=== PATIENT | male | born 1950 | race Two or more races ===

== ENCOUNTER 2016-11-20 19:46 | Inpatient (IN) | payer MEDICARE, MEDICAID ==
[~2016-11-20] VITALS: Ht 177.8 cm; Wt 67.1 kg
--- NOTE | 2016-11-20 19:50 | NUR ---
To bed 5 a 66 yo male bibra with c/o leaking gtube and per ems PMD wants to have gt replaced. Upon arrival to er, patient is obtunded, opens eyes, nonverbal, with shiley 6 trach to [facility] vent ramon well to current settings as AC rate 16 TV 450 FIo2 50% and peep 5. Patent airway maintained. Patient noted to have a temp taken per orem at 101.2F, skin moist. manager floral in placed. Kept hob elevated. Initiated comfort measures. Awaiting for er md ocampo.
[2016-11-20 20:01] VITALS: BP 108/52
[2016-11-20] MEDS ORDERED: DIATR MEGLU/DIATRIZOATE SODIUM 120 ML BOTTLE (GASTROGRAPHIN) ONE (20:06)
[2016-11-20] MEDS ORDERED: ACETAMINOPHEN 650 MG/SUPP.RECT RC ONE ×2 (20:11→20:30)
--- NOTE | 2016-11-20 20:13 | NUR ---
started a saline lock on the right wrist g18, blood drawn and sent to lab.
[2016-11-20 20:17] LABS: BASOPHILS # (AUTO) 0.4 /CMM (0.0-0.2); BASOPHILS % (AUTO) 2.8 % (0.0-2.0); EOSINOPHILS # (AUTO) 0.1 /CMM (0.0-0.7); EOSINOPHILS % (AUTO) 0.7 % (0.0-6.0); HEMATOCRIT 33 % (39-51); HEMOGLOBIN 10.8 g/dL (13.5-17.5); LYMPHOCYTES # (AUTO) 2.6 /CMM (0.8-4.8); MEAN CORPUSCULAR HEMOGLOBIN 34 PG (26.0-33.0); MEAN CORPUSCULAR HGB CONC 33 g/dl (31.0-36.0); MEAN CORPUSCULAR VOLUME 103 fL (80-96); MONOCYTES # (AUTO) 1.1 /CMM (0.1-1.30); MONOCYTES % (AUTO) 7.8 % (2.0-12.0); NEUTROPHILS # (AUTO) 10.5 /CMM (1.8-8.9); NEUTROPHILS % (AUTO) 70.7 % (43.0-81.0); PLATELET COUNT (AUTO) 260 /CMM (150-450); RDW COEFFICIENT OF VARIATION 13.3 (11.5-15.0); RED BLOOD CELL COUNT(AUTO) 3.18 MIL/uL (4.5-6.0); WHITE BLOOD COUNT (AUTO) 14.7 K/uL (4.3-11.0)
--- NOTE | 2016-11-20 20:20 | NUR ---
xr tech at bedside.
[2016-11-20] MEDS ORDERED: IV NS 0.9% 2,000 ML ONE (20:22)
[2016-11-20] MEDS ORDERED: IV SET PRIMARY 1 EA INFUS.SET MC ONE (20:22)
[2016-11-20 20:30] LABS: CALCIUM, SERUM 8.5 mg/dL (8.5-10.1); POTASSIUM 4.1 mmol/L (3.5-5.1)
[2016-11-20] MEDS ORDERED: IV NS 0.9% 1,000 ML BAG IV ONE (20:30)
[2016-11-20 20:31] LABS: INR 1.04 (0.87-1.13); PROTHROMBIN TIME 10.8 SECS (9.5-12.7)
[2016-11-20 20:34] LABS: ALBUMIN 2.1 g/dL (3.4-5.0); BILIRUBIN,DIRECT 0.1 mg/dL (0.0-0.2); BILIRUBIN,TOTAL 0.3 mg/dL (0.2-1.0); TOTAL PROTEIN, SERUM 6.9 g/dL (6.4-8.2)
--- NOTE | 2016-11-20 20:40 | NUR ---
PT RECEIVED FROM TRANSPORT ON VENT VIA TRACH IN ER ON CHARTED SETTINGS AMBU BAG AT BEDSIDE ALARMS SET AND AUDIBLE BREATH SOUNDS COURSE EQUAL BILATERAL SUCTIONED A SMALL AMOUNT OF THICK ZHU SECRETIONS PT RECEIVING NO BREATHING TX AT THIS TIME Addendum: 11/20/16 at 2043 by TARUN SAMUEL RT Amended: Links added.
[2016-11-20 20:41] LABS: LACTIC ACID 0.7 mmol/L (0.4-2.0)
[2016-11-20 20:42] LABS: TROPONIN I 0.056 ng/mL (0.00-0.056)
--- NOTE | 2016-11-20 20:55 | NUR ---
CALLED NURSING SUP. FOR TELE BED
[2016-11-20] MEDS ORDERED: PIPERACILLIN /TAZOBACTAM 3.375 G in IV D5W 50 ML IV ONE (21:00)
[2016-11-20] MEDS ORDERED: VANCOMYCIN 1 GM in IV D5W 250 ML IV ONE (21:00)
[2016-11-20 21:05] LABS: APPEARANCE,URINE Clear (CLEAR); BILIRUBIN,URINE Negative (NEGATIVE); BLOOD, URINE Large Ery/uL (NEGATIVE); COLOR,URINE Yellow (YELLOW); KETONES,URINE Negative (NEGATIVE); LEUKOCYTE ESTERASE ,URINE Negative (NEGATIVE); NITRITE, URINE Negative (NEGATIVE); PROTEIN,URINE 30 mg/dl (NEGATIVE); UGLUCOSE Negative (NEGATIVE); UROBILINOGEN,URINE 0.2 EU/dL (0.2)
[2016-11-20] MEDS ORDERED: PIPERACILLIN /TAZOBACTAM 3.375 G VIAL IV ONE (21:07)
[2016-11-20] MEDS ORDERED: IV SET PRIMARY PUMP SET 1 EA INFUS.SET MC ONE (21:07)
[2016-11-20] MEDS ORDERED: VANCOMYCIN 1 GM VIAL ONE (21:08)
--- NOTE | 2016-11-20 21:09 | NUR ---
CALLED 'S GROUP, HOME DECORATOR, PAGED TO CALL BACK
[2016-11-20] MEDS ORDERED: ACET500C43 PO (21:21)
[2016-11-20 21:38] LABS: ADD URINE CULTURE NO; BACTERIA,URINE Few /HPF (None Seen); RBC,URINE 21-50 /HPF (0-2); SQUAMOUS EPITHELIAL CELL,UR Few /HPF (None Seen); WBC,URINE 0-2 /HPF (0-3)
[2016-11-20] MEDS ORDERED: DIGO125T GT (21:38)
[2016-11-20] MEDS ORDERED: PANT40SU2 GT (21:38)
[2016-11-20] MEDS ORDERED: FAMO20TA80 GT (21:38)
[2016-11-20] MEDS ORDERED: LIDO30AD10 TP (21:38)
[2016-11-20] MEDS ORDERED: LEVE100S GT (21:38)
[2016-11-20] MEDS ORDERED: PROP20TA7 PO (21:38)
[2016-11-20] MEDS ORDERED: INSU100V11 SQ ×2 (21:38)
[2016-11-20] MEDS ORDERED: FINA5TAB4 GT (21:38)
[2016-11-20] MEDS ORDERED: LORA10TA7 PO (21:38)
--- NOTE | 2016-11-20 21:42 | NUR ---
Report given to Jakub SOUZA for nkechi.
--- NOTE | 2016-11-20 21:58 | NUR ---
RN NOTES RECEIVED REPORT FROM ER. SATISH
--- NOTE | 2016-11-20 22:07 | NUR ---
Transported to the [facility] bed 114-2 via [facility] protocol, no incident noted.
--- NOTE | 2016-11-20 22:15 | NUR ---
UNDERCOAT SPRAYER INITIAL NOTES RECEIVED PT IN A GURNEY, PT IS OBTUNDED, TRACH INTACT SHILEY#6, AC16, TV450, FIO2 40%, PEEP5. NO RESPIRATORY DISTRESS NOTED. BODY ASSESSMENT DONE, PICTURES TAKEN, GT SITE LEAKAGE NOTED, ODORLESS, YELLOWISH, NO RESIDUAL NOTED. SR ON TELE MONITOR. IV SITES ON RIGHT WRIST FLUSHED AND PATENT. RUST IS PATENT, YELLOW AND CLEAR URINE DRAINING. BED LOCKED AND IN LOWEST POSITION. Addendum: 11/21/16 at 0645 by APARNA OREILLY RN PT IS AWAKE, RESPONDS TO YES OR NO QUESTIONS RESPONDS TO LIGHT TOUCH INTERMITTENTLY.
--- NOTE | 2016-11-20 22:54 | NUR ---
ACCOUNTS RECEIVABLE CLERK NOTES RECEIVED ORDERS FROM DR GUILLEN.
[2016-11-20] MEDS ORDERED: ENOXAPARIN SODIUM 40 MG/0.4 ML DISP.SYRIN SQ ONE (23:12)
--- NOTE | 2016-11-20 23:27 | NUR ---
SALES OPERATIONS CONSULTANT NOTES INFORMED DR. GUILLEN REGARDING PATIENT ABDOMEN XRAY RESULT. WITH ORDERS TO HOLD GTF AT THIS TIME UNTIL SEEN BY GI MD. NOTED AND CARRIED OUT.
[2016-11-20] MEDS ORDERED: ENOXAPARIN SODIUM 40 MG/0.4 ML DISP.SYRIN SQ SCH (23:30)
[2016-11-20] MEDS: BLOOD SUGAR DIAGNOSTIC 1 EACH STRIP IN SCH (23:53)
[2016-11-21] VITALS: BP_SYST 110; BP_SYST 96; BP_DIAS 54; BP_DIAS 61
[2016-11-21] MEDS ORDERED: DEXTROSE 50%-WATER 50 ML DISP.SYRIN IV PRN
[2016-11-21] MEDS ORDERED: INSULIN REGULAR, HUMAN 100 UNIT/ML 3 ML VIAL SQ PRN
--- NOTE | 2016-11-21 00:12 | NUR ---
FRESH FOOD MANAGER NOTES SPOKE WITH DR. JORDAN REGARDING PATIENT NPO STATUS, WITH ORDERS FOR IVF 1/2NS AT 75ML/HR. NOTED AND CARRIED OUT.
[2016-11-21] MEDS ORDERED: IV 1/2NS 1000 ML 1,000 ML IV ONE (00:19)
[2016-11-21] MEDS ORDERED: IV 1/2NS 1000 ML 1,000 ML IV PRN (00:30)
[2016-11-21] MEDS ORDERED: ALBUTEROL FS 2.5 MG/3 ML VIAL.NEB ONE (00:30)
[2016-11-21] MEDS ORDERED: IPRATROPIUM NEB FS 0.5 MG/2.5 ML AMPUL.NEB ONE (00:30)
[2016-11-21] MEDS: IPRATROPIUM NEB FS 0.5 MG/2.5 ML AMPUL.NEB NEB SCH ×4 (00:56→19:49)
[2016-11-21] MEDS: ALBUTEROL FS 2.5 MG/3 ML VIAL.NEB NEB SCH ×4 (00:56→19:48)
[2016-11-21 04:00] VITALS: BP 99/60
[2016-11-21] MEDS ORDERED: PIPERACILLIN /TAZOBACTAM 3.375 G in IV D5W 50 ML IV SCH (05:00)
[2016-11-21] MEDS ORDERED: IV D5W 50 ML IV ONE (05:10)
[2016-11-21] MEDS ORDERED: SECONDARY IV SET 1 EA INFUS.SET MC ONE ×2 (05:10→09:34)
[2016-11-21] MEDS ORDERED: PIPERACILLIN /TAZOBACTAM 3.375 G VIAL IV ONE (05:10)
[2016-11-21] MEDS: BLOOD SUGAR DIAGNOSTIC 1 EACH STRIP IN SCH ×4 (06:34→21:17)
--- NOTE | 2016-11-21 06:45 | NUR ---
SCRIPT EDITOR CLOSING NOTES NO SIGNIFICANT CHANGES OVERNIGHT, CURRENT VENT SETTING TOLERATING IT WELL, TRACH CLEAN AND INTACT, NO RESPIRATORY DISTRESS NOTED. KEPT CLEAN AND DRY, TURNED AND REPOSITIONED. ALL MEDS GIVEN, HOB ELEVATED, BED LOCKED, IN LOWEST POSITION. WILL ENDORSE TO AM NURSE FOR CONTINUATION OF CARE.
[2016-11-21] MEDS ORDERED: ACET-868 GT (07:30)
[2016-11-21] MEDS ORDERED: HYDR-3976 GT (07:31)
[2016-11-21 07:56] LABS: CALCIUM, SERUM 8.2 mg/dL (8.5-10.1); CREATININE 0.8 mg/dL (0.6-1.3); MAGNESIUM 2.6 mg/dL (1.8-2.4); PHOSPHORUS 4.3 mg/dL (2.5-4.9); POTASSIUM 3.6 mmol/L (3.5-5.1)
[2016-11-21 08:00] VITALS: BP 96/57
[2016-11-21 08:10] LABS: BASOPHILS % (AUTO) 0.3 % (0.0-2.0); EOSINOPHILS # (AUTO) 0.1 /CMM (0.0-0.7); EOSINOPHILS % (AUTO) 1.1 % (0.0-6.0); HEMATOCRIT 30 % (39-51); HEMOGLOBIN 9.5 g/dL (13.5-17.5); LYMPHOCYTES # (AUTO) 1.6 /CMM (0.8-4.8); LYMPHOCYTES % (AUTO) 13.2 % (20.0-44.0); MEAN CORPUSCULAR HEMOGLOBIN 33 PG (26.0-33.0); MEAN CORPUSCULAR HGB CONC 32 g/dl (31.0-36.0); MEAN CORPUSCULAR VOLUME 103 fL (80-96); MONOCYTES # (AUTO) 0.9 /CMM (0.1-1.30); MONOCYTES % (AUTO) 7.2 % (2.0-12.0); NEUTROPHILS # (AUTO) 9.6 /CMM (1.8-8.9); NEUTROPHILS % (AUTO) 78.2 % (43.0-81.0); PLATELET COUNT (AUTO) 219 /CMM (150-450); RDW COEFFICIENT OF VARIATION 14.3 (11.5-15.0); WHITE BLOOD COUNT (AUTO) 12.3 K/uL (4.3-11.0)
[2016-11-21] MEDS ORDERED: ENOXAPARIN SODIUM 40 MG/0.4 ML DISP.SYRIN SQ SCH (08:14)
[2016-11-21] MEDS ORDERED: FEE PK DOSING 1 MIN EA MC ONE (08:24)
[2016-11-21] MEDS: FINASTERIDE (5 MG) 5 MG TABLET PO SCH (09:30)
[2016-11-21] MEDS: LORATADINE 10 MG TABLET PO SCH (09:30)
[2016-11-21] MEDS: VANCOMYCIN 0.75 GM in IV D5W 250 ML IV SCH ×3 (09:32→23:57)
--- NOTE | 2016-11-21 09:33 | NUR ---
NOT ABLE TO GIVE AM MEDS DUE TO GT MALFUNCTION
--- NOTE | 2016-11-21 11:07 | NUR ---
WOUND CARE CONSULT: PT PRESENTS WITH RT EAR DEEP TISSUE INJURY IN EVOLUTION, PRESENT ON ADMISSION. PT NOTED TO HAVE REDNESS AROUND G TUBE SITE WITH GREENISH DRAINAGE. G TUBE IS CLAMPED. AWAITING GI CONSULT. PT ON MILTON ISOFLEX LOW AIRLOSS BED. IT IS VERY DIFFICULT TO OFFLOAD RT EAR DUE TO PT'S HEAD TURNED IN FIXED POSITION TO RT SIDE. ALL SKIN PROTECTION MEASURES IN PLACE AND DISCUSSED WITH NURSING STAFF. MD IN AGREEMENT WITH PLAN OF CARE. Addendum: 11/21/16 at 1109 by ANIAT DEAN WNDNU Amended: Links added.
[2016-11-21] MEDS ORDERED: Z GUARD REMEDY 2 OZ OINT TP PRN (11:30)
[2016-11-21] MEDS ORDERED: ACET-73 GT (11:34)
[2016-11-21] MEDS ORDERED: MULT240L7 GT (11:34)
[2016-11-21] MEDS ORDERED: SIME80TA15 GT (11:34)
[2016-11-21] MEDS ORDERED: CRAN3875 GT (11:34)
[2016-11-21] MEDS ORDERED: MAGN400O6 GT (11:34)
[2016-11-21] MEDS ORDERED: ASCO500T9 (11:34)
[2016-11-21] MEDS ORDERED: DOCU50LI GT (11:34)
[2016-11-21] MEDS ORDERED: AMIN887L GT (11:34)
[2016-11-21] MEDS ORDERED: NA P133E RC (11:34)
[2016-11-21] MEDS ORDERED: ONDA4TAB11 GT (11:34)
[2016-11-21] MEDS ORDERED: BISA10SU61 RC (11:34)
[2016-11-21] MEDS ORDERED: ACET325T53 GT ×3 (11:34)
[2016-11-21] MEDS ORDERED: ZINC220C6 GT (11:34)
[2016-11-21] MEDS ORDERED: IPRA3AMP IH (11:45)
[2016-11-21 12:00] VITALS: BP 104/61
[2016-11-21] MEDS: PROPRANOLOL HCL 10 MG TABLET PO SCH ×2 (12:25→20:54)
[2016-11-21] MEDS ORDERED: ACETAMINOPHEN 650 MG/SUPP.RECT RC PRN (12:30)
[2016-11-21] MEDS ORDERED: IV D5W 1,000 ML IV PRN (12:30)
--- NOTE | 2016-11-21 12:50 | NUR ---
US GUIDED THORACENTESES SCHEDULED FOR TODAY PER US OPTICAL LABORATORY MECHANIC ZULEYKA.
[2016-11-21] MEDS ORDERED: IV SET PRIMARY PUMP SET 1 EA INFUS.SET MC ONE (13:21)
[2016-11-21] MEDS ORDERED: INSULIN LISPRO/ASPART 100 UNIT/ML CARTRIDGE SQ SCH (13:30)
[2016-11-21] MEDS: PIPERACILLIN /TAZOBACTAM 3.375 G in IV D5W 50 ML IV SCH ×3 (13:33→23:57)
[2016-11-21] MEDS ORDERED: acetaZOLAMIDE 250 MG TABLET PO SCH (13:53)
[2016-11-21] MEDS ORDERED: HYDROCODONE GT PRN (14:00)
[2016-11-21] MEDS ORDERED: ACETAMINOPHEN GT PRN (14:00)
[2016-11-21] MEDS ORDERED: HYDROCODONE/APAP 7.5/325MG 1 EACH TABLET GT PRN (14:30)
[2016-11-21] MEDS: NEOMY SULF/BACITRAC ZN/POLY 15 GM TUBE TP SCH (15:20)
[2016-11-21] MEDS: Z GUARD REMEDY 2 OZ OINT TP SCH (15:21)
[2016-11-21] MEDS: LIDOCAINE 5% (PATCH) 1 EA PATCH TP SCH (15:21)
[2016-11-21 15:48] LABS: ABG BASE EXCESS 0.6 mmol/L; ABG OXYGEN SATURATION 95.9 % (92.0-98.5); ABG PH 7.409 (7.350-7.450); ABG PO2 89.3 mmHg (75.0-100.0); ABG TOTAL HEMOGLOBIN 9.3 G/dL (13.5-18.0); COHb 0.3 % (0.5-1.5); MetHb 0.5 % (0.0-1.5); O2Hb 95.1 % (94.0-97.0); PEEP,BG 5 cm H2O; SITE, ABG Left Radial; VT, ABG 450 mL
[2016-11-21 16:00] VITALS: BP 94/66
--- NOTE | 2016-11-21 16:19 | NUR ---
DR. HUSSEIN CALLED AND LEFT MESSAGE TO CHANGE GT METS TO IV.
--- NOTE | 2016-11-21 16:20 | NUR ---
PER US TECH NO NEED FOR THORACENTESIS
[2016-11-21] MEDS: DIGOXIN 0.125 MG TABLET GT SCH (16:50)
[2016-11-21] MEDS: FAMOTIDINE (20 MG) 20 MG TABLET GT SCH (17:00)
[2016-11-21] MEDS ORDERED: LEVETIRACETAM SOL (5 ML) 100 MG/ML UDC GT SCH (17:00)
[2016-11-21] MEDS ORDERED: LEVETIRACETAM (500MG) 750 MG in IV NS 0.9% 100 ML IV SCH (17:00)
[2016-11-21] MEDS: INSULIN LISPRO/ASPART 100 UNIT/ML CARTRIDGE SQ SCH ×2 (17:30→22:00)
--- NOTE | 2016-11-21 18:32 | NUR ---
KEPPRA IV IS NOT AVAILABLE, PHARMACY CALLED.
--- NOTE | 2016-11-21 19:05 | NUR ---
PT RESTING IN BED COMFORTABLY, NO SOB OR DISTRESS NOTED, NO S/S OF PAIN OR DISCOMFORT, GTF IN HOLD, AWAITING FOR GI DR. BUSCH AND SURGEON DR. HUSSEIN TO VISIT PT FOR CONSULT, MD'S ARE AWARE, WILL INDORSE PT TO NEXT SHIFT IN STABLE CONDITION.
[2016-11-21 20:00] VITALS: BP 108/72
[2016-11-21] MEDS: LEVETIRACETAM (500MG) 750 MG in IV NS 0.9% 100 ML IV SCH (20:53)
[2016-11-21] MEDS: ENOXAPARIN SODIUM 40 MG/0.4 ML DISP.SYRIN SQ SCH ×2 (20:56→21:00)
--- NOTE | 2016-11-21 21:02 | NUR ---
GARCIA MYRICK NOTED BLOOD CLOTS FROM URETHRA, NOTED ALSO DARK TARRY. LEE GRIMALDO MD Addendum: 11/21/16 at 2104 by DAVID MAYO RN NOTED ALSO DARK TARRY STOOL IN THE DIAPER
[2016-11-22] VITALS (7 sets, daily range): BP systolic 86–98; BP diastolic 49–64
[2016-11-22] MEDS: IPRATROPIUM NEB FS 0.5 MG/2.5 ML AMPUL.NEB NEB SCH ×4 (01:30→20:13)
[2016-11-22] MEDS: ALBUTEROL FS 2.5 MG/3 ML VIAL.NEB NEB SCH ×4 (01:30→20:13)
[2016-11-22] MEDS: PROPRANOLOL HCL 10 MG TABLET PO SCH ×3 (04:56→21:00)
[2016-11-22] MEDS: BLOOD SUGAR DIAGNOSTIC 1 EACH STRIP IN SCH ×3 (04:59→17:30)
[2016-11-22] MEDS: PANTOPRAZOLE 40 MG/PACK PACK GT SCH (06:04)
[2016-11-22] MEDS: PIPERACILLIN /TAZOBACTAM 3.375 G in IV D5W 50 ML IV SCH ×3 (06:04→17:30)
[2016-11-22] MEDS: INSULIN LISPRO/ASPART 100 UNIT/ML CARTRIDGE SQ SCH ×4 (06:05→21:18)
[2016-11-22] MEDS ORDERED: SECONDARY IV SET 1 EA INFUS.SET MC ONE (07:20)
--- NOTE | 2016-11-22 07:30 | NUR ---
initial note patient resting in bed, able to follow simple commands, non-verbal. trach patent, mech vent functioning wnl at prescribed setting. GT patent, no residuals, no feeding at this time. minimal drainage at stoma site, dry. dressing intact. tele monitor reading SR 82. R hand IV patent with prescribed fluids. denies pain. no bleeding or discharge noted at penile site. discussed plan of care. call light in reach.
--- NOTE | 2016-11-22 07:41 | NUR ---
pt slight fever of 100.9 resolved after tylenol suppository given,denies any pain overnight, gt noted yellowish minimal drainage ,dressing changed, iv fluids continue with antibiotics, had bm x2 liquid incontinent stool, still have some blood noted around the penis but not in the urine. Dr Shea production engineer last night aware of lovenox held but no other orders. will continue to monitor, kept clean and dry.no acute distress. kept attended.
[2016-11-22 08:29] LABS: BASOPHILS % (AUTO) 0.2 % (0.0-2.0); EOSINOPHILS # (AUTO) 0.2 /CMM (0.0-0.7); EOSINOPHILS % (AUTO) 2.7 % (0.0-6.0); HEMATOCRIT 28 % (39-51); HEMOGLOBIN 9.1 g/dL (13.5-17.5); MEAN CORPUSCULAR HEMOGLOBIN 33 PG (26.0-33.0); MEAN CORPUSCULAR HGB CONC 33 g/dl (31.0-36.0); MEAN CORPUSCULAR VOLUME 101 fL (80-96); MONOCYTES # (AUTO) 0.4 /CMM (0.1-1.30); MONOCYTES % (AUTO) 4.5 % (2.0-12.0); NEUTROPHILS # (AUTO) 7.2 /CMM (1.8-8.9); NEUTROPHILS % (AUTO) 81.6 % (43.0-81.0); PLATELET COUNT (AUTO) 155 /CMM (150-450); RED BLOOD CELL COUNT(AUTO) 2.78 MIL/uL (4.5-6.0); WHITE BLOOD COUNT (AUTO) 8.8 K/uL (4.3-11.0)
[2016-11-22 08:38] LABS: CALCIUM, SERUM 8.3 mg/dL (8.5-10.1); CREATININE 0.8 mg/dL (0.6-1.3); MAGNESIUM 2.4 mg/dL (1.8-2.4); PHOSPHORUS 4.3 mg/dL (2.5-4.9); POTASSIUM 3.3 mmol/L (3.5-5.1)
[2016-11-22] MEDS: LEVETIRACETAM (500MG) 750 MG in IV NS 0.9% 100 ML IV SCH ×2 (08:40→21:22)
[2016-11-22] MEDS: Z GUARD REMEDY 2 OZ OINT TP SCH (08:41)
[2016-11-22] MEDS: NEOMY SULF/BACITRAC ZN/POLY 15 GM TUBE TP SCH (08:41)
[2016-11-22] MEDS: FAMOTIDINE (20 MG) 20 MG TABLET GT SCH ×2 (08:41→17:00)
[2016-11-22] MEDS: acetaZOLAMIDE 250 MG TABLET GT SCH (08:41)
[2016-11-22] MEDS: FINASTERIDE (5 MG) 5 MG TABLET PO SCH (08:41)
[2016-11-22] MEDS: LORATADINE 10 MG TABLET PO SCH (08:41)
[2016-11-22] MEDS: VANCOMYCIN 0.75 GM in IV D5W 250 ML IV SCH (08:49)
--- NOTE | 2016-11-22 10:46 | NUR ---
Dr. Lal at [facility], informed of + blood cultures, informed that EARNESTINE Cruz wants to speak to him
[2016-11-22] MEDS ORDERED: POTASSIUM CHLORIDE 20 MEQ POWDER PACKET GT SCH (11:30)
[2016-11-22] MEDS: DIGOXIN 0.125 MG TABLET GT SCH (12:30)
[2016-11-22] MEDS: LIDOCAINE 5% (PATCH) 1 EA PATCH TP SCH (13:48)
--- NOTE | 2016-11-22 15:34 | NUR ---
DR. DUBON SAW PATIENT AND REPLACED GT AND ORDERED STAT KUB WITH CONTRAST. PATIENT TOLERATED PROCEDURE.
[2016-11-22] MEDS ORDERED: DIATR MEGLU/DIATRIZOATE SODIUM 30 ML BOTTLE (GASTROGRAPHIN) ONE (15:47)
[2016-11-22] MEDS: LACTOBACILLUS RHAMNOSUS GG 1 EACH CAP.SPRINK GT SCH (17:00)
--- NOTE | 2016-11-22 17:32 | NUR ---
left message for dr. gomez regarding kub results and if ok to give meds, pending response.
--- NOTE | 2016-11-22 18:04 | NUR ---
dr. gomez gave T.O. to hold feeding and hold GT medication until tomorrow.
--- NOTE | 2016-11-22 19:30 | NUR ---
CLOSING NOTE LEFT PATIENT IN STABLE CONDITION BREATHING AND LOC AT BASELINE WNL. ENDORSED TO F/U WITH KUB AND FEEDING TOMORROW. CALL LIGHT IN REACH.
--- NOTE | 2016-11-22 19:30 | NUR ---
GRANT OFFICER INITIAL NOTES RECEIVED PATIENT IN BED, ASLEEP AT THIS TIME, EASILY AROUSABLE TO NAME AND LIGHT TOUCH. PATIENT ALERT AND ORIENTED X1, LETHARGIC AT THIS TIME. TRACH MIDLINE AND INTACT, ON MECHANICAL VENTILATOR AT PRESCRIBED SETTING, TOLERATING WELL, FREE FROM ANY S/S OF RESPIRATORY DISTRESS. GT CLAMPED AT THIS TIME. PER DR DUBON, HOLD GTF AND GT MEDS UNTIL TOMORROW MORNING AFTER XRAY KUB WITH CONTRAST. IV SITE PATENT AND INTACT, FLUSHED WITH NS, FREE FROM ANY S/S OF INFILTRATION OR PHLEBITIS. CALL LIGHT LEFT WITHIN EASY REACH, BED IN LOWEST AND LOCKED POSITION. WILL CONTINUE TO CLOSELY MONITOR
[2016-11-22] MEDS: ENOXAPARIN SODIUM 40 MG/0.4 ML DISP.SYRIN SQ SCH (21:17)
[2016-11-23] VITALS: BP 105/66
[2016-11-23] MEDS: BLOOD SUGAR DIAGNOSTIC 1 EACH STRIP IN SCH ×5 (01:03→17:06)
[2016-11-23] MEDS: PIPERACILLIN /TAZOBACTAM 3.375 G in IV D5W 50 ML IV SCH ×4 (01:03→17:03)
[2016-11-23] MEDS: IPRATROPIUM NEB FS 0.5 MG/2.5 ML AMPUL.NEB NEB SCH ×4 (01:37→20:03)
[2016-11-23] MEDS: ALBUTEROL FS 2.5 MG/3 ML VIAL.NEB NEB SCH ×4 (01:37→20:03)
[2016-11-23 04:00] VITALS: BP 100/69
[2016-11-23] MEDS: PANTOPRAZOLE 40 MG/PACK PACK GT SCH (06:30)
[2016-11-23] MEDS: PROPRANOLOL HCL 10 MG TABLET PO SCH ×3 (06:33→20:06)
[2016-11-23] MEDS: INSULIN LISPRO/ASPART 100 UNIT/ML CARTRIDGE SQ SCH ×4 (06:40→21:02)
--- NOTE | 2016-11-23 07:30 | NUR ---
initial note patient resting in bed, able to follow simple commands, non-verbal. trach patent, mech vent functioning wnl at prescribed setting. GT patent, no residuals, no feeding at this time. minimal drainage at stoma site, dry. dressing intact. tele monitor reading SR. R hand IV patent with prescribed fluids. denies pain. no bleeding or discharge noted at penile site. discussed plan of care. call light in reach.
[2016-11-23 07:48] LABS: CALCIUM, SERUM 7.9 mg/dL (8.5-10.1); CREATININE 0.8 mg/dL (0.6-1.3)
--- NOTE | 2016-11-23 07:54 | NUR ---
RT PATIENT REC'D TRACHED ON VENT WITH ORDERED SETTINGS SET BY MD MARY KOHLI. VENT ALARMS CHECKED + AUDIBLE. SX'D WITH MOD AMT PALE SEMITHICK SECRETIONS. B/S DIM. AMBU BAG AT HOB. NO DISTRESS AT THIS TIME. CONT CURRENT PLAN OF RESP CARE. Addendum: 11/23/16 at 0754 by LUIS FERNANDO BAY RT Amended: Links added.
[2016-11-23 08:00] VITALS: BP 102/64
[2016-11-23] MEDS: Z GUARD REMEDY 2 OZ OINT TP SCH (08:49)
[2016-11-23] MEDS: LEVETIRACETAM (500MG) 750 MG in IV NS 0.9% 100 ML IV SCH ×2 (08:49→19:22)
[2016-11-23] MEDS: NEOMY SULF/BACITRAC ZN/POLY 15 GM TUBE TP SCH (08:49)
[2016-11-23] MEDS: acetaZOLAMIDE 250 MG TABLET GT SCH (09:00)
--- NOTE | 2016-11-23 11:32 | NUR ---
dr. gomez gave T.O. order to start feeding, glytrol @ 30ml/hr and increase as tolerated to reach goal of 75 ml/hr per dietary recommendation 11/22. ok to give meds in GT per MD.
[2016-11-23] MEDS: FINASTERIDE (5 MG) 5 MG TABLET PO SCH (11:55)
[2016-11-23] MEDS: LORATADINE 10 MG TABLET PO SCH (11:55)
[2016-11-23] MEDS: LACTOBACILLUS RHAMNOSUS GG 1 EACH CAP.SPRINK GT SCH ×2 (11:55→16:59)
[2016-11-23] MEDS: FAMOTIDINE (20 MG) 20 MG TABLET GT SCH ×2 (11:56→16:59)
[2016-11-23 12:00] VITALS: BP 97/55
[2016-11-23] MEDS: LIDOCAINE 5% (PATCH) 1 EA PATCH TP SCH (12:21)
[2016-11-23] MEDS: DIGOXIN 0.125 MG TABLET GT SCH (12:21)
[2016-11-23] MEDS: POTASSIUM CHLORIDE 20 MEQ POWDER PACKET GT SCH ×3 (12:21→15:44)
[2016-11-23] MEDS: GLYTROL 1,000 ML BAG GT PRN (13:50)
[2016-11-23 16:00] VITALS: BP 106/48
[2016-11-23] MEDS: Potassium Chloride 40 MEQ in IV D5W 1,000 ML IV PRN (16:59)
--- NOTE | 2016-11-23 18:41 | NUR ---
patient's R eye became swollen within 1-2 hours of positioning on the R side. notified doctor Kyle who said continue to monitor. informed patient's DPOA Mr. Cruz. took picture and placed in chart. no discharge from eye at this time.
--- NOTE | 2016-11-23 19:36 | NUR ---
closing note left patient in stable condition. breathing and LOC at base line. no residuals noted in GT at change of shift. feeding continuous. nausea and abd pain resolved after Zofran and Tylenol administered. no complications at PICC line site. no new wounds noted. provided prn adl care and prn suctioning promptly this shift. repositioned q2 hours. tolerated SIMV vent mode. family at bed side. call light in reach.
[2016-11-23 20:00] VITALS: BP 94/59
[2016-11-23] MEDS: ENOXAPARIN SODIUM 40 MG/0.4 ML DISP.SYRIN SQ SCH (20:09)
[2016-11-24] VITALS: BP 94/67
[2016-11-24] MEDS: PIPERACILLIN /TAZOBACTAM 3.375 G in IV D5W 50 ML IV SCH ×4 (00:33→17:56)
[2016-11-24] MEDS: BLOOD SUGAR DIAGNOSTIC 1 EACH STRIP IN SCH ×4 (00:34→17:56)
[2016-11-24] MEDS: ALBUTEROL FS 2.5 MG/3 ML VIAL.NEB NEB SCH ×4 (01:55→19:33)
[2016-11-24] MEDS: IPRATROPIUM NEB FS 0.5 MG/2.5 ML AMPUL.NEB NEB SCH ×4 (01:55→19:33)
[2016-11-24 04:00] VITALS: BP 108/63
[2016-11-24] MEDS: PROPRANOLOL HCL 10 MG TABLET PO SCH ×3 (05:00→20:47)
[2016-11-24] MEDS: PANTOPRAZOLE 40 MG/PACK PACK GT SCH (05:40)
[2016-11-24 07:05] LABS: EOSINOPHILS # (AUTO) 0.2 /CMM (0.0-0.7); EOSINOPHILS % (AUTO) 2.5 % (0.0-6.0); HEMATOCRIT 28 % (39-51); HEMOGLOBIN 9.1 g/dL (13.5-17.5); LYMPHOCYTES % (AUTO) 10.2 % (20.0-44.0); MEAN CORPUSCULAR HEMOGLOBIN 34 PG (26.0-33.0); MEAN CORPUSCULAR HGB CONC 33 g/dl (31.0-36.0); MEAN CORPUSCULAR VOLUME 102 fL (80-96); MONOCYTES # (AUTO) 0.4 /CMM (0.1-1.30); MONOCYTES % (AUTO) 4.7 % (2.0-12.0); NEUTROPHILS # (AUTO) 7.7 /CMM (1.8-8.9); NEUTROPHILS % (AUTO) 82.6 % (43.0-81.0); PLATELET COUNT (AUTO) 179 /CMM (150-450); RDW COEFFICIENT OF VARIATION 14.2 (11.5-15.0); RED BLOOD CELL COUNT(AUTO) 2.73 MIL/uL (4.5-6.0); WHITE BLOOD COUNT (AUTO) 9.3 K/uL (4.3-11.0)
--- NOTE | 2016-11-24 07:15 | NUR ---
RN INITIAL NOTES: Rec'd pt awake on bed, HOB elevated, not in any distress. Pt on mech vent via trach (Shiley 6) w/ ff settings: AC 16, TV 550, FiO2 40%, PEEP 5, saturating at 100%. Secretions suctioned. On telemonitoring, ST w/ HR 103 bpm. Pt has patent & intact FC draining to adequate urine output. Has patent & intact PEG w/ Glytrol at 60 cc/hr infusing well, no residual noted upon checking. Has R hand G22 PL patent & intact w/ D5W 1L + 40 meqs KCL x 75 cc/hr infusing well. Provided comfort & safety measures. Call light placed w/in reach. Bed kept low & in locked position. Will turn, reposition & offload heels as per protocol. Will continue to monitor.
[2016-11-24 07:23] LABS: CALCIUM, SERUM 7.8 mg/dL (8.5-10.1); CREATININE 0.7 mg/dL (0.6-1.3); MAGNESIUM 2.1 mg/dL (1.8-2.4); PHOSPHORUS 3.3 mg/dL (2.5-4.9)
[2016-11-24 08:00] VITALS: BP 122/68
[2016-11-24] MEDS: LEVETIRACETAM (500MG) 750 MG in IV NS 0.9% 100 ML IV SCH ×2 (08:26→20:46)
[2016-11-24] MEDS: FAMOTIDINE (20 MG) 20 MG TABLET GT SCH ×2 (08:27→17:56)
[2016-11-24] MEDS: LACTOBACILLUS RHAMNOSUS GG 1 EACH CAP.SPRINK GT SCH ×2 (08:27→17:56)
[2016-11-24] MEDS: FINASTERIDE (5 MG) 5 MG TABLET PO SCH (08:27)
[2016-11-24] MEDS: LORATADINE 10 MG TABLET PO SCH (08:27)
[2016-11-24] MEDS: acetaZOLAMIDE 250 MG TABLET GT SCH (08:27)
[2016-11-24] MEDS: NEOMY SULF/BACITRAC ZN/POLY 15 GM TUBE TP SCH (08:28)
[2016-11-24] MEDS: Z GUARD REMEDY 2 OZ OINT TP SCH (08:28)
[2016-11-24] MEDS: INSULIN LISPRO/ASPART 100 UNIT/ML CARTRIDGE SQ SCH ×2 (08:33→11:30)
[2016-11-24] MEDS ORDERED: SECONDARY IV SET 1 EA INFUS.SET MC ONE (10:35)
[2016-11-24] MEDS: VANCOMYCIN 0.75 GM in IV D5W 250 ML IV SCH (10:40)
[2016-11-24 12:00] VITALS: BP 115/52
[2016-11-24] MEDS: DIGOXIN 0.125 MG TABLET GT SCH (12:44)
[2016-11-24] MEDS: LIDOCAINE 5% (PATCH) 1 EA PATCH TP SCH (12:44)
--- NOTE | 2016-11-24 13:02 | NUR ---
RN NOTES: Pt seen & examined by Dr. Wright w/ orders & carried out. Per MD change the insulin coverage time to every 6 hours as well.
[2016-11-24] MEDS ORDERED: DEXTROSE 50%-WATER 50 ML DISP.SYRIN IV PRN (14:00)
[2016-11-24] MEDS: Potassium Chloride 40 MEQ in IV D5W 1,000 ML IV PRN (15:10)
[2016-11-24] MEDS: GLYTROL 1,000 ML BAG GT PRN (15:11)
[2016-11-24] MEDS ORDERED: IV SET PRIMARY PUMP SET 1 EA INFUS.SET MC ONE (15:36)
[2016-11-24 16:00] VITALS: BP 131/62
[2016-11-24] MEDS ORDERED: INSULIN LISPRO/ASPART 100 UNIT/ML CARTRIDGE SQ SCH (18:00)
[2016-11-24] MEDS: INSULIN REGULAR, HUMAN 100 UNIT/ML 3 ML VIAL SQ PRN (18:03)
--- NOTE | 2016-11-24 18:43 | NUR ---
RN CLOSING NOTES: No acute changes noted w/in shift. Pt tolerated mech vent settings, saturating at 100%. Secretions suctioned. On telemonitoring, SR w/ HR 81 bpm. FC kept patent & intact draining to adequate urine output. PEG kept patent & intact w/ Glytrol at 75 cc/hr infusing well, no residual noted upon checking. Has R hand G22 PL patent & intact w/ D5W 1L + 40 meqs KCL x 75 cc/hr infusing well. Kept well rested. Call light placed w/in reach. Bed kept low & in locked position. Wound care done. Turned, repositioned & offloaded heels. Will endorse to PM RN for KELLIE.
--- NOTE | 2016-11-24 19:20 | NUR ---
RN INITIAL NOTES RECEIVED PATIENT IN BED, NONVERBAL, OBTUNDED, OPENS EYES SPONTANEOUSLY WITH GOOD EYE TRACKING. PATIENT ON MECH VENT VIA TRACH, MIDLINE, C/D/I, TOLERATED CURRENT SETTINGS WELL, NO DISTRESS. AIRWAY SUCTIONED NEEDED. SR WITH PEAK T WAVES ON TELE AT 87. F/C TO GRAVITY, CLEAR, YELLOW URINE. GTF INFUSING WELL, NO GASTRIC RESIDUAL NOTED. HOB ELEVATED. PATIENT TURNED AND REPOSITIONED. SAFETY AND COMFORT ENSURED. BED IN LOW AND LOCKED POSITION. WILL MONITOR CLOSELY.
[2016-11-24 20:00] VITALS: BP 100/64
[2016-11-24] MEDS: ENOXAPARIN SODIUM 40 MG/0.4 ML DISP.SYRIN SQ SCH (20:47)
[2016-11-25] VITALS: BP 102/62
[2016-11-25] MEDS: PIPERACILLIN /TAZOBACTAM 3.375 G in IV D5W 50 ML IV SCH ×4 (00:30→18:04)
[2016-11-25] MEDS: BLOOD SUGAR DIAGNOSTIC 1 EACH STRIP IN SCH ×4 (00:32→17:54)
[2016-11-25] MEDS: IPRATROPIUM NEB FS 0.5 MG/2.5 ML AMPUL.NEB NEB SCH ×4 (01:31→19:21)
[2016-11-25] MEDS: ALBUTEROL FS 2.5 MG/3 ML VIAL.NEB NEB SCH ×4 (01:32→19:21)
[2016-11-25 04:00] VITALS: BP 98/62
[2016-11-25] MEDS: PROPRANOLOL HCL 10 MG TABLET PO SCH ×3 (06:16→20:51)
[2016-11-25] MEDS: PANTOPRAZOLE 40 MG/PACK PACK GT SCH (06:19)
[2016-11-25] MEDS: GLYTROL 1,000 ML BAG GT PRN (06:19)
[2016-11-25 06:42] LABS: BASOPHILS % (AUTO) 0.1 % (0.0-2.0); EOSINOPHILS # (AUTO) 0.2 /CMM (0.0-0.7); EOSINOPHILS % (AUTO) 2.2 % (0.0-6.0); HEMATOCRIT 28 % (39-51); HEMOGLOBIN 9.1 g/dL (13.5-17.5); LYMPHOCYTES # (AUTO) 0.9 /CMM (0.8-4.8); LYMPHOCYTES % (AUTO) 8.2 % (20.0-44.0); MEAN CORPUSCULAR HEMOGLOBIN 33 PG (26.0-33.0); MEAN CORPUSCULAR HGB CONC 32 g/dl (31.0-36.0); MEAN CORPUSCULAR VOLUME 102 fL (80-96); MONOCYTES # (AUTO) 0.4 /CMM (0.1-1.30); MONOCYTES % (AUTO) 4.1 % (2.0-12.0); NEUTROPHILS % (AUTO) 85.4 % (43.0-81.0); PLATELET COUNT (AUTO) 161 /CMM (150-450); RDW COEFFICIENT OF VARIATION 14.6 (11.5-15.0); RED BLOOD CELL COUNT(AUTO) 2.75 MIL/uL (4.5-6.0); WHITE BLOOD COUNT (AUTO) 10.5 K/uL (4.3-11.0)
--- NOTE | 2016-11-25 06:59 | NUR ---
RN CLOSING NOTES PATIENT WITH NO ACUTE DISTRESS AND DISCOMFORT OBSERVED OVERNIGHT. PATIENT OBSERVED TO BE RESPONSIVE WITH VERBAL AND TACTILE STIMULI, PATIENT OBSERVED TO RESPOND TO STAFF VERBALLY WITH PAINFUL STIMULI AND AM CARE RENDERED. REASSURANCE PROVIDED TO PATIENT NEEDED. PATIENT KEPT CLEAN AND DRY. WOUND CARE RENDERED. F/C INTACT AND DRAINING VIA GRAVITY. GTF INFUSING WELL WITH NO GASTRIC RESIDUAL. PATIENT TURNED AND REPOSITIONED. PATIENT'S NEEDS ANTICIPATED AND MET. SAFETY AND COMFORT ENSURED. BED IN LOW AND LOCKED POSITION. CALL LIGHT IN REACH. WILL ENDORSE ACCORDINGLY FOR CONTINUITY OF CARE.
--- NOTE | 2016-11-25 07:15 | NUR ---
RN INITIAL NOTE PT RECEIVED IN BED. SLEEPING. NO S/S OF PAIN OR DISCOMFORT. RESPIRATIONS ARE EVEN AND UNLABORED. PT HAS TRACH. ARGENISLEY #6, AC 16, TV 450, FI02 40%, PEEP 5. NO S/S OF RESPIRATORY DISTRESS OR SOB. GTUBE FLUSHED AND PATENT, GLYTROL RUNNING AT 75ML/HR. RUST CATH. PATENT AND DRAINING TO GRAVITY. SKIN IS WARM AND DRY TO TOUCH. IV SITE FLUSHED AND PATENT. DRESSING C/D/I. SAFETY PRECAUTIONS IMPLEMENTED. BED IN LOCKED, LOW POSITION WITH TWO SIDE RAILS UP. CALL LIGHT AND BELONGINGS WITHIN EASY REACH. WILL CONTINUE TO MONITOR.
[2016-11-25 07:32] LABS: CALCIUM, SERUM 7.9 mg/dL (8.5-10.1); CREATININE 0.7 mg/dL (0.6-1.3); PHOSPHORUS 3.1 mg/dL (2.5-4.9); POTASSIUM 4.4 mmol/L (3.5-5.1)
[2016-11-25 08:00] VITALS: BP 95/57
[2016-11-25] MEDS: Z GUARD REMEDY 2 OZ OINT TP SCH (09:00)
[2016-11-25] MEDS: NEOMY SULF/BACITRAC ZN/POLY 15 GM TUBE TP SCH (09:00)
[2016-11-25] MEDS: FAMOTIDINE (20 MG) 20 MG TABLET GT SCH ×2 (09:15→17:53)
[2016-11-25] MEDS: LACTOBACILLUS RHAMNOSUS GG 1 EACH CAP.SPRINK GT SCH ×2 (09:16→17:53)
[2016-11-25] MEDS: acetaZOLAMIDE 250 MG TABLET GT SCH (09:16)
[2016-11-25] MEDS: FINASTERIDE (5 MG) 5 MG TABLET PO SCH (09:16)
[2016-11-25] MEDS: LORATADINE 10 MG TABLET PO SCH (09:16)
[2016-11-25] MEDS: LEVETIRACETAM (500MG) 750 MG in IV NS 0.9% 100 ML IV SCH ×2 (09:20→20:50)
[2016-11-25] MEDS ORDERED: IV NS 0.9% 250 ML IV ONE (09:22)
[2016-11-25 12:00] VITALS: BP 96/63
[2016-11-25] MEDS: VANCOMYCIN 0.75 GM in IV D5W 250 ML IV SCH (13:10)
[2016-11-25] MEDS: DIGOXIN 0.125 MG TABLET GT SCH (13:30)
[2016-11-25] MEDS: LIDOCAINE 5% (PATCH) 1 EA PATCH TP SCH (13:34)
[2016-11-25 16:00] VITALS: BP 94/57
[2016-11-25] MEDS: IV D5W 1,000 ML IV PRN (17:53)
--- NOTE | 2016-11-25 19:12 | NUR ---
RN CLOSING NOTE ALL MD ORDERS CARRIED OUT. PT KEPT CLEAN AND DRY. SAFETY PRECAUTIONS IN PLACE AT ALL TIMES WILL GIVE REPORT TO PM RN FOR KELLIE.
--- NOTE | 2016-11-25 19:21 | NUR ---
[facility] WITH NOTED SETTINGS. VENT ALARM WORKING AND AUDIBLE. VENT PLUGGED INTO RED OUTLET. TRACH SECURE IN AND IN PROPER POSITION. CUFF CHECKED POLITICAL CONSULTANT. PT SUCTIONED WITH SMALL AMOUNT OF SEMI THICK YELLOWISH WHITE SECRETIONS. NO RESPIRATORY DISTRESS AT THIS TIME. AMBU BAG AT BEDSIDE. WILL CONTINUE TO MONITOR
--- NOTE | 2016-11-25 19:45 | NUR ---
DEVELOPMENT TRAINER INITIAL NOTE PT RECEIVED IN BED. ON MECH VENT AND SATING WELL. TELE-SINUS RHYTHM W BBB, PVC. RUST CATHETER IN PLACE AND DRAINING WELL. GTUBE FEEDING PATENT AND FEEDING WELL TOLERATED. NOT RESIDUAL NOTED AT THIS TIME. IV R THUMB CLEAN AND INTACT WITH FLUIDS RUNNING AND WELL TOLERATED. ALL SAFETY MEASURES IN PLACE. WILL CONTINUE TO MONITOR.
[2016-11-25 20:00] VITALS: BP 99/65
[2016-11-25] MEDS: ENOXAPARIN SODIUM 40 MG/0.4 ML DISP.SYRIN SQ SCH (20:51)
[2016-11-26] VITALS: BP 111/65
[2016-11-26] MEDS: PIPERACILLIN /TAZOBACTAM 3.375 G in IV D5W 50 ML IV SCH ×3 (00:52→12:24)
[2016-11-26] MEDS: BLOOD SUGAR DIAGNOSTIC 1 EACH STRIP IN SCH ×3 (00:52→12:24)
[2016-11-26] MEDS: GLYTROL 1,000 ML BAG GT PRN ×2 (01:01→12:25)
[2016-11-26] MEDS: IPRATROPIUM NEB FS 0.5 MG/2.5 ML AMPUL.NEB NEB SCH ×3 (01:07→13:19)
[2016-11-26] MEDS: ALBUTEROL FS 2.5 MG/3 ML VIAL.NEB NEB SCH ×3 (01:07→13:19)
[2016-11-26 04:00] VITALS: BP 104/50
[2016-11-26] MEDS: PANTOPRAZOLE 40 MG/PACK PACK GT SCH (05:53)
[2016-11-26] MEDS: PROPRANOLOL HCL 10 MG TABLET PO SCH ×2 (05:55→12:26)
[2016-11-26] MEDS: INSULIN REGULAR, HUMAN 100 UNIT/ML 3 ML VIAL SQ PRN ×2 (06:06→13:00)
[2016-11-26 07:14] LABS: BASOPHILS % (AUTO) 0.1 % (0.0-2.0); EOSINOPHILS # (AUTO) 0.2 /CMM (0.0-0.7); EOSINOPHILS % (AUTO) 1.3 % (0.0-6.0); HEMATOCRIT 29 % (39-51); HEMOGLOBIN 9.3 g/dL (13.5-17.5); LYMPHOCYTES # (AUTO) 0.8 /CMM (0.8-4.8); LYMPHOCYTES % (AUTO) 6.5 % (20.0-44.0); MEAN CORPUSCULAR HEMOGLOBIN 33 PG (26.0-33.0); MEAN CORPUSCULAR HGB CONC 32 g/dl (31.0-36.0); MEAN CORPUSCULAR VOLUME 102 fL (80-96); MONOCYTES # (AUTO) 0.6 /CMM (0.1-1.30); MONOCYTES % (AUTO) 4.6 % (2.0-12.0); NEUTROPHILS # (AUTO) 11.1 /CMM (1.8-8.9); NEUTROPHILS % (AUTO) 87.5 % (43.0-81.0); PLATELET COUNT (AUTO) 177 /CMM (150-450); RED BLOOD CELL COUNT(AUTO) 2.87 MIL/uL (4.5-6.0); WHITE BLOOD COUNT (AUTO) 12.7 K/uL (4.3-11.0)
--- NOTE | 2016-11-26 07:15 | NUR ---
ROUTER TENDER CLOSING NOTE PT REMAINED STABLE DURING SHIFT. RUST CATHETER IN PLACE. IV SITE INTACT, PATENT AND FLUSHING WELL. CALL LIGHT WITHIN EASY REACH AT ALL TIMES. WILL ENDORSE TO NEXT SHIFT FOR KELLIE.
--- NOTE | 2016-11-26 07:20 | NUR ---
RN INITIAL NOTE PT RECEIVED IN BED, ASLEEP. PT HAS ETHEL SANTILLAN #6, AC 16, TV 450, FI02 40%, PEEP 5. SATING WELL. PT IS SINUS RHYTHM ON TELE MONITOR. WITH PVC'S. GTUBE, FLUSHED, PATENT. GLYTROL RUNNING AT 75ML/HOUR. RIGHT THUMB IV, 22G FLUSHED AND PATENT. DRESSING C/D/I. SKIN IS WARM AND DRY TO TOUCH. SAFETY MEASURES IMPLEMENTED. BED IN LOCKED, LOW POSITION WITH TWO SIDE RAILS UP. CALL LIGHT AND BELONGINGS WITHIN REACH. WILL CONTINUE TO MONITOR.
[2016-11-26 07:26] LABS: CALCIUM, SERUM 8.3 mg/dL (8.5-10.1); CREATININE 0.6 mg/dL (0.6-1.3); MAGNESIUM 2.1 mg/dL (1.8-2.4); POTASSIUM 3.9 mmol/L (3.5-5.1)
[2016-11-26 08:00] VITALS: BP_SYST 93; BP_SYST 98; BP_DIAS 50
[2016-11-26] MEDS: LACTOBACILLUS RHAMNOSUS GG 1 EACH CAP.SPRINK GT SCH (08:37)
[2016-11-26] MEDS: FINASTERIDE (5 MG) 5 MG TABLET PO SCH (08:38)
[2016-11-26] MEDS: acetaZOLAMIDE 250 MG TABLET GT SCH (08:38)
[2016-11-26] MEDS: FAMOTIDINE (20 MG) 20 MG TABLET GT SCH (08:38)
[2016-11-26] MEDS: LORATADINE 10 MG TABLET PO SCH (08:38)
[2016-11-26] MEDS: Z GUARD REMEDY 2 OZ OINT TP SCH (08:44)
[2016-11-26] MEDS: NEOMY SULF/BACITRAC ZN/POLY 15 GM TUBE TP SCH (08:44)
[2016-11-26] MEDS: LEVETIRACETAM (500MG) 750 MG in IV NS 0.9% 100 ML IV SCH (08:44)
[2016-11-26] MEDS ORDERED: HYDROCODONE/APAP 5/325MG 1 EACH TABLET GT PRN (10:00)
[2016-11-26] MEDS: VANCOMYCIN 0.75 GM in IV D5W 250 ML IV SCH (10:11)
[2016-11-26 11:42] VITALS: BP 96/57
[2016-11-26 12:00] VITALS: BP 96/57
[2016-11-26] MEDS: IV D5W 1,000 ML IV PRN (12:25)
[2016-11-26] MEDS: DIGOXIN 0.125 MG TABLET GT SCH (12:26)
[2016-11-26] MEDS: LIDOCAINE 5% (PATCH) 1 EA PATCH TP SCH (12:28)
[2016-11-26 16:00] VITALS: BP 98/58
--- NOTE | 2016-11-26 17:45 | NUR ---
RN CLOSING NOTE PT DISCHARGED TO [facility]. IV AND F/C LEFT INTACT. REPORT CALLED IN TO [facility], AND EMT NAHOMI, AMBULANCE TRANSPORT
== END 2016-11-26 17:28 | DRG 870 ==
LOC: ER 19:47 → TELE1 21:34
PROVIDERS: ADMIT Internal Medicine; ATTEND Internal Medicine Nephrology
PROC: 5A1955Z Respiratory Ventilation, Greater than 96 Consecutive Hours (ICD-10-PCS; principal; 2016-11-20)
DX: A41.9 Sepsis, unspecified organism (principal); G93.40 Encephalopathy, unspecified; J18.9 Pneumonia, unspecified organism; L03.311 Cellulitis of abdominal wall; E87.0 Hyperosmolality and hypernatremia; J96.11 Chronic respiratory failure with hypoxia; N17.9 Acute kidney failure, unspecified; Z99.11 Dependence on respirator [ventilator] status; K94.23 Gastrostomy malfunction; J98.11 Atelectasis; E86.0 Dehydration; R13.10 Dysphagia, unspecified; Y83.3 Surgical operation with formation of external stoma as the cause of abnormal reaction of the patient, or of later complication, without mention of misadventure at the time of the procedure; Z93.0 Tracheostomy status; E11.9 Type 2 diabetes mellitus without complications; N40.0 Benign prostatic hyperplasia without lower urinary tract symptoms; M41.9 Scoliosis, unspecified; D64.9 Anemia, unspecified; H60.91 Unspecified otitis externa, right ear; K21.9 Gastro-esophageal reflux disease without esophagitis; K44.9 Diaphragmatic hernia without obstruction or gangrene; K80.20 Calculus of gallbladder without cholecystitis without obstruction; M85.80 Other specified disorders of bone density and structure, unspecified site; Y95 Nosocomial condition; Z98.1 Arthrodesis status; Z86.718 Personal history of other venous thrombosis and embolism; Z86.73 Personal history of transient ischemic attack (TIA), and cerebral infarction without residual deficits
CPT/HCPCS: 31720; 36415; 36600; 71010-TC; 74000-TC; 76942-TC; 80048-TC; 80076-TC; 80162-TC; 80202-TC; 81000-TC; 82962-TC; 83605-TC; 83735-TC; 84100-TC; 84484-TC; 85025-TC; 85730-TC; 87040-TC; 87070-TC; 87081-TC; 87086-TC; 87186-TC; 94002-TC; 94003-TC; 94760-TC; 99082-TC; A4606; A6403; J1650; J1815; J1953; J2543; J3370; J3480; J3490; J7030; J7050; J7060; J7070; Q9963; Z7610

== ENCOUNTER 2017-03-14 19:30 | Emergency (ER) | payer MEDICARE, MEDICAID ==
[~2017-03-14] VITALS: Ht 172.7 cm; Wt 72.6 kg
[~2017-03-14 19:30] MED LIST: ACET-73 GT; ACET-868 GT; ACET325T53 GT; ACET500C43 PO; AMIN887L GT; ASCO500T9; BISA10SU61 RC; CRAN3875 GT; DIGO125T GT; DOCU50LI GT; FAMO20TA80 GT; FINA5TAB4 GT; HYDR-3976 GT; INSU100V11 SQ; IPRA3AMP IH; LEVE100S GT; LIDO30AD10 TP; LORA10TA7 PO; MAGN400O6 GT; MULT240L7 GT; NA P133E RC; ONDA4TAB11 GT; PANT40SU2 GT; PROP20TA7 PO; SIME80TA15 GT; ZINC220C6 GT
[2017-03-14 19:33] VITALS: BP 125/87
[2017-03-14] MEDS ORDERED: DIATR MEGLU/DIATRIZOATE SODIUM 30 ML BOTTLE (GASTROGRAPHIN) ONE (19:58)
== END 2017-03-14 20:27 ==
LOC: ER 19:35
DX: Z43.1 Encounter for attention to gastrostomy (principal); E11.9 Type 2 diabetes mellitus without complications; I11.0 Hypertensive heart disease with heart failure; I48.91 Unspecified atrial fibrillation; I50.9 Heart failure, unspecified; K21.9 Gastro-esophageal reflux disease without esophagitis; Z79.4 Long term (current) use of insulin; Z88.6 Allergy status to analgesic agent
CPT/HCPCS: 74000-TC; A4606; Q9963; Z7610